=== PATIENT | female | born 1970 | race African-American/Black ===

== ENCOUNTER 2018-07-19 22:30 | Emergency (ER) | payer MEDICAID ==
[~2018-07-19] VITALS: Ht 172.7 cm; Wt 131.0 kg
[~2018-07-19 22:30] MED LIST: ALBUTEROL; THERAFLU
[2018-07-19] MEDS ORDERED: LORAZEPAM 2MG/ML CPJ IM ONE (23:15)
[2018-07-20 01:31] VITALS: BP 113/66
== END 2018-07-20 01:37 | disposition home or self-care (01) ==
LOC: ER 22:44
DX: F41.0 Panic disorder [episodic paroxysmal anxiety] (principal)
CPT/HCPCS: 93005; 96372; 99284; J2060; Z7610